=== PATIENT | male | born 1965 | race African-American/Black ===

== ENCOUNTER 2018-11-13 12:28 | Emergency (ER) | payer OTHER ==
[~2018-11-13] VITALS: Ht 172.7 cm; Wt 95.3 kg
[2018-11-13 12:34] VITALS: BP 123/84
[2018-11-13 14:01] LABS: BASOPHILS % (AUTO) 0.8 % (0.0-2.0); HEMATOCRIT 45.3 % (36-52); HEMOGLOBIN 14.6 g/dL (12.0-18.0); LYMPHOCYTES # (AUTO) 1.2 K/uL (2.0-11.5); LYMPHOCYTES % (AUTO) 20.1 % (20.5-51.1); MEAN CORPUSCULAR HEMOGLOBIN 29 pg (27-31); MEAN CORPUSCULAR HGB CONC 32 g/dL (33-37); MEAN CORPUSCULAR VOLUME 91.2 fL (80-94); MONOCYTES # (AUTO) 0.5 K/uL (0.8-1.0); MONOCYTES % (AUTO) 7.9 % (1.7-9.3); NEUTROPHILS # (AUTO) 4.2 K/uL (1.8-7.7); NEUTROPHILS % (AUTO) 71.2 % (42.2-75.2); PLATELET COUNT (AUTO) 261 K/uL (140-450); RED BLOOD CELL COUNT(AUTO) 4.96 MIL/uL (4.20-6.10); RED CELL DISTRIBUTION WIDTH 16.4 % (11.6-13.7)
[2018-11-13 14:22] LABS: ANION GAP 16.5 (8-16); CREATININE 1.9 mg/dL (0.7-1.3); POTASSIUM 4.5 mmol/L (3.5-5.1); TOTAL BILIRUBIN 1.9 mg/dL (0.0-1.0)
[2018-11-13 14:42] LABS: PROTHROMBIN TIME 13.1 secs (10.8-13.4)
[2018-11-13] MEDS ORDERED: SPIR25TA20 PO (15:52)
[2018-11-13] MEDS ORDERED: ATOR40TA PO (15:52)
[2018-11-13] MEDS ORDERED: CARV6.252 PO (15:52)
[2018-11-13] MEDS ORDERED: GABA100C PO (15:52)
[2018-11-13] MEDS ORDERED: VAS5 PO (15:52)
[2018-11-13] MEDS ORDERED: WARF7.5T PO (15:52)
[2018-11-13] MEDS ORDERED: DIGO-91 PO (15:52)
[2018-11-13] MEDS: FUROSEMIDE 40 MG/4 ML VIAL IVP ONE (17:05)
[2018-11-13] MEDS: ASPIRIN 81 MG TAB.CHEW PO ONE (17:51)
[2018-11-13] MEDS: hePARIN / DEXT 5% PREMIX 250 ML IV ONE (17:57)
[2018-11-13] MEDS: hePARIN / DEXT 5% PREMIX 250 ML IV SCH (17:57)
[2018-11-13 21:46] VITALS: BP 146/96
== END 2018-11-13 22:13 | disposition short-term general hospital (02) ==
LOC: MED 12:28
DX: I50.9 Heart failure, unspecified (principal); I21.4 Non-ST elevation (NSTEMI) myocardial infarction; E11.9 Type 2 diabetes mellitus without complications; F15.90 Other stimulant use, unspecified, uncomplicated; Z79.899 Other long term (current) drug therapy; Z88.0 Allergy status to penicillin; Z88.1 Allergy status to other antibiotic agents; Z95.0 Presence of cardiac pacemaker
CPT/HCPCS: 36415; 71045; 80053; 83690; 83880; 84484; 85025; 85610; 93005; 96374; 96375; 99291; J1644